=== PATIENT | female | born 1945 | race Caucasian/White ===

== ENCOUNTER 2016-12-16 16:09 | Emergency (ER) | payer MEDICARE, BC ==
[2016-12-16] MEDS ORDERED: Ondansetron INJ* 2 MG/ML VIAL IV ONE ×2 (17:17→20:02)
[2016-12-16] MEDS ORDERED: NS 0.9% 1000 ML* 1,000 ML IV ONE (17:17)
[2016-12-16] MEDS ORDERED: Albuterol 2.5 MG/3 ML NEB.SOL* (0.083%) INH ONE (18:12)
[2016-12-16] MEDS ORDERED: Ipratropium 0.5MG/2.5ML NEB* 0.5 MG/2.5 ML NEB.SOLN INH ONE (18:12)
[2016-12-16] MEDS ORDERED: guaiFENesin/CODIEN 100MG-10MG* 5 ML UDC PO ONE (18:17)
[2016-12-16 18:45] LABS: Hematocrit 36 % (35-47); Hemoglobin 12.4 g/dl (12.0-16.0); Mean Corpuscular HGB Conc 35 g/dl (31-36); Mean Corpuscular Hemoglobin 36 pg (27-31); Mean Corpuscular Volume 104 fL (80-97); Mean Platelet Volume 8 um3 (7.4-10.4); Red Blood Count 3.44 10^6/ul (4.0-5.4); Red Cell Distribution Width 14 % (10.5-15); White Blood Count 5.6 10^3/ul (3.5-10.8)
--- NOTE | 2016-12-16 18:54 | RAD ---
Indication: Cough. 2 views of the chest are reviewed and compared to previous exam dated October 21, 2013. Patient has had prior right lung lobectomy. Postoperative changes with pleural thickening is noted in the right costophrenic angle. Left lung field appears hyperinflated. No definite pneumonia is noted. IMPRESSION: Postop changes of the right lung field with chronic pleural changes. No definite pneumonia is identified.
[2016-12-16 19:13] LABS: ALT 11 U/L (7-52); AST 16 U/L (13-39); Albumin 4.2 g/dL (3.2-5.2); Alkaline Phosphatase 96 U/L (34-104); Anion Gap 10 mmol/L (2-11); BUN/Creatinine Ratio 20.2 (8-20); Blood Urea Nitrogen 22 mg/dL (6-24); C Reactive Protein 25.43 mg/L (< 5.00); CO2 Carbon Dioxide 29 mmol/L (22-32); Chloride 98 mmol/L (101-111); EGFR Non-African American 49.8 (>60); Globulin 3.6 g/dL (2-4); Glucose 134 mg/dL (70-100); Lipase < 10 U/L (11.0-82.0); Potassium 3.7 mmol/L (3.5-5.0); Sodium 137 mmol/L (133-145); Total Protein 7.8 g/dL (6.4-8.9)
[2016-12-16 19:17] LABS: Urine Bacteria Absent (Absent); Urine Bilirubin Negative (Negative); Urine Glucose Negative (Negative); Urine Nitrite Negative (Negative)
--- NOTE | 2016-12-16 19:23 | ED ---
Medical Screening - HPI Summary HPI Summary: The patient is a 71 year old female presenting to ED for nausea, vomiting, and inability to tolerate PO intake today. Reports preceding cough x5 days with post -tussive emesis. Denies fever, nasal symptoms, chest pain, shortness of breath, hemoptysis, abdominal pain, diarrhea, constipation, change in voiding, dysuria, hematuria, rash. Indicates current cough feels similar to prior diagnosis of right pleural effusion which was secondary to breast CA. Currently undergoing daily PO chemotherapy for recurrent Breast CA under oncologist Dr. Madden. Additional history of HTN, hypothyroid, PNA. S/P right mastectomy and c- section. Denies significant FH. PCP Dr. Siu. SH: Occasional ETOH. Denies smoking. - History of Current Complaint Chief Complaint: EDNauseaVomitDiarrh Stated Complaint: VOMITING-CA PT Time Seen by Provider: 12/16/16 17:56 PMH/Surg Hx/FS Hx/Imm Hx Endocrine/Hematology History: Reports: Hx Thyroid Disease Cardiovascular History: Reports: Hx Hypertension Respiratory History: Reports: Hx Pleural Effusion, Hx Pneumonia - several times after chemo, Other Respiratory Problems/Disorders - BREAST CA. PLEURAL EFFUSION Sensory History: Reports: Hx Contacts or Glasses - reading Opthamlomology History: Reports: Hx Contacts or Glasses - reading Psychiatric History: Comment Only: Other Psychiatric Issues/Disorders - clostrophobic - Cancer History Cancer Type, Location and Year: Right Breast, 1998, Dr. Nico Barger Chemotherapy: Yes Hx Radiation Therapy: Yes Hx Palliative Cancer Treatment: No - Surgical History Surgery Procedure, Year, and Place: rt mastectomy 1998; Hx Anesthesia Reactions: No Infectious Disease History: No Infectious Disease History: Denies: History Other Infectious Disease, Traveled Outside the [place] in Last 30 Days - Family History Known Family History: Positive: None - Social History Alcohol Use: Occasionally Substance Use Type: Reports: None Smoking Status (MU): Never Smoked Tobacco Review of Systems Constitutional: Negative ENT: Negative Cardiovascular: Negative Positive: Cough. Negative: Shortness Of Breath Positive: Vomiting, Nausea. Negative: Abdominal Pain, Diarrhea Genitourinary: Negative Negative: dysuria, frequency, hematuria Skin: Negative Negative: Rash Neurological: Negative All Other Systems Reviewed And Are Negative: Yes Physical Exam Triage Information Reviewed: Yes Vital Signs On Initial Exam: Initial Vitals Temp Pulse Resp BP Pulse Ox 98.2 F 100 16 141/77 100 12/16/16 16:11 12/16/16 16:11 12/16/16 16:11 12/16/16 16:11 12/16/16 16:11 Vital Signs Reviewed: Yes Appearance: Positive: Well-Appearing, Pain Distress - mild pain, no guarding or grimace, Obese Skin: Positive: Warm, Skin Color Reflects Adequate Perfusion, Dry Head/Face: Positive: Normal Head/Face Inspection Eyes: Positive: Other: - Anicteric ENT: Positive: Hearing grossly normal, Other - Oral mucosa moist Neck: Positive: Supple Respiratory/Lung Sounds: Positive: Breath Sounds Present, Wheezes - scant expiratory wheezing left > right. Negative: Decreased Breath Sounds, Rales, Rhonchi, Subcutaneous Emphysema, Stridor, Unable to speak in full sentences Cardiovascular: Positive: Normal - radial pulse 2+, RRR, S1, S2. Negative: Murmur, Rub, Tachycardia, Leg Edema Left, Leg Edema Right Abdomen Description: Positive: Nontender, No Organomegaly, Soft. Negative: Distended, Guarding, Peritoneal Signs Bowel Sounds: Positive: Present Musculoskeletal: Positive: Normal - AROM all extremities Neurological: Positive: Normal - awake, alert, Facial Symmetry, Speech Normal Psychiatric: Positive: Normal AVPU Assessment: Alert - Magda Coma Scale Coma Scale Total: 15 Diagnostics - Vital Signs Vital Signs Temp Pulse Resp BP Pulse Ox 12/16/16 19:00 95 143/73 98 12/16/16 18:44 98 96 12/16/16 18:42 137/75 12/16/16 17:25 97.7 F 100 20 114/70 100 12/16/16 16:11 98.2 F 100 16 141/77 100 - Laboratory Lab Results: Lab Results 12/16/16 12/16/16 Range/Units 18:30 18:30 WBC 5.6 (3.5-10.8) 10^3/ul RBC 3.44 L (4.0-5.4) 10^6/ul Hgb 12.4 (12.0-16.0) g/dl Hct 36 (35-47) % MCV 104 H (80-97) fL MCH 36 H (27-31) pg MCHC 35 (31-36) g/dl RDW 14 (10.5-15) % Plt Count 392 (150-450) 10^3/ul MPV 8 (7.4-10.4) um3 Neut % (Auto) 83.1 H (38-83) % Lymph % (Auto) 11.2 L (25-47) % [place] % (Auto) 4.6 (1-9) % Eos % (Auto) 0.1 (0-6) % Baso % (Auto) 1.0 (0-2) % Absolute Neuts (auto) 4.6 (1.5-7.7) 10^3/ul Absolute Lymphs (auto) 0.6 L (1.0-4.8) 10^3/ul Absolute Monos (auto) 0.3 (0-0.8) 10^3/ul Absolute Eos (auto) 0 (0-0.6) 10^3/ul Absolute Basos (auto) 0.1 (0-0.2) 10^3/ul Absolute Nucleated RBC 0.01 10^3/ul Nucleated RBC % 0.1 Sodium 137 (133-145) mmol/L Potassium 3.7 (3.5-5.0) mmol/L Chloride 98 L (101-111) mmol/L Carbon Dioxide 29 (22-32) mmol/L Anion Gap 10 (2-11) mmol/L BUN 22 (6-24) mg/dL Creatinine 1.09 H (0.51-0.95) mg/dL Est GFR ( Amer) 64.0 (>60) Est GFR (Non-Af Amer) 49.8 (>60) BUN/Creatinine Ratio 20.2 H (8-20) Glucose 134 H (70-100) mg/dL Calcium 10.0 (8.6-10.3) mg/dL Total Bilirubin 0.50 (0.2-1.0) mg/dL AST 16 (13-39) U/L ALT 11 (7-52) U/L Alkaline Phosphatase 96 (34-104) U/L C-Reactive Protein 25.43 H (< 5.00) mg/L Total Protein 7.8 (6.4-8.9) g/dL Albumin 4.2 (3.2-5.2) g/dL Globulin 3.6 (2-4) g/dL Albumin/Globulin Ratio 1.2 (1-3) Lipase < 10 L (11.0-82.0) U/L Result Diagrams: 12/16/16 18:30 12/16/16 18:30 Lab Statement: Any lab studies that have been ordered have been reviewed, and results considered in the medical decision making process. Re-Evaluation - Re-Evaluation First Eval Re-Evaluation Time: 20:03 Change: Improved Comment: Patient reports mild persistent nausea without recurrent vomiting. Discussed lab and imaging results. Given water, gingerale, crackers, and apple sauce for PO challenge. Second Eval Re-Evaluation Time: 20:57 Change: Improved Comment: Patient reports feeling improved after duoneb. Tolerated PO liquids and crackers. Is taking PO chemo med. Anticipate discharge. Course/Dx - Diagnoses Provider Diagnoses: Emesis, Dehydration, Bronchospasm Discharge - Discharge Plan Condition: Stable Disposition: HOME Prescriptions: Albuterol HFA INHALER* [Ventolin HFA Inhaler*] 1 puff INH Q6H PRN #1 mdi PRN Reason: Sob/Wheezing guaiFENesin/CODIEN 100MG-10MG* [Robitussin AC 100Mg-10Mg*] 10 ml PO Q4H PRN # 300 ml MDD 60 mL PRN Reason: Cough Patient Education Materials: Bronchospasm (ED), Acute Nausea and Vomiting (ED) , Dehydration (ED) Referrals: Jeane Siu MD [Primary Care Provider] - Joshua Madden MD [Medical Doctor] -
--- NOTE | 2016-12-16 20:10 | ED ---
Stephanie Sandy Anna, scribed for Amanda Hinton MD on 12/16/16 at 1927 . Progress - Progress Note Progress Note: Patient is a 71 y/o female coming to [facility] presenting with sudden onset of intermittent emesis that began five days ago. She is not able to keep down fluids. The emesis is triggered by coughing. She reports frequent coughing. She currently sees Dr. Madden for treatment for breast CA treated with chemotherapy. The chemotherapy makes her intermittently nauseous, but her current emesis is not at baseline. The symptoms are not alleviated by Zofran. Denies fever. She has not been admitted for this previously. Three years ago, she had 2 L of fluid in her pleural cavity and was coughing similarly. She did not experience emesis at that time. Patient has dry mucous membranes. She is currently uncomfortable. Her abd is soft and nontender. She is coughing infrequently. Course/Dx - Diagnoses Provider Diagnoses: Emesis The documentation as recorded by the Stephanie arellano Anna accurately reflects the service I personally performed and the decisions made by , Amanda Hinton MD.
[2016-12-16] MEDS ORDERED: Albuterol/Ipratropium NEB.SOL* Albuterol 2.5 MG/Ipratropium 0.5 MG 3 ML INH ONE (20:28)
[2016-12-16 21:34] VITALS: BP 136/70
== END 2016-12-16 21:34 | disposition home or self-care (01) ==
LOC: ED 16:09
DX: R11.10 Vomiting, unspecified (principal); C50.919 Malignant neoplasm of unspecified site of unspecified female breast; I10 Essential (primary) hypertension; E03.9 Hypothyroidism, unspecified; E86.0 Dehydration; J98.01 Acute bronchospasm
CPT/HCPCS: 36415; 71020; 80053; 81003; 81015; 83690; 85025; 86140; 94640; 96360; 96374; 96376; 99283; A9270-GY; J2405

== ENCOUNTER 2017-02-16 10:02 | Inpatient (IN) | payer MEDICARE, BC ==
--- NOTE | 2017-02-16 11:16 | ED ---
Shortness of Breath - HPI Summary HPI Summary: 72 y/o patient with h/o SOB, breast CA currently undergoing chemo, recent port placement 02/13 with increasing SOB x 1 week, patient unable to walk across room without feeling weak/ SOB, no chest pain, unable to take deep breath, only shallow breathing, + coughing productive with white phlegm. no fever, chills. + wekaness fatigue from chemo. no tob use. spoke with Dr. Madden this AM. - History of Current Complaint Chief Complaint: EDShortnessOfBreath Time Seen by Provider: 02/16/17 10:28 Hx Obtained From: Patient Onset/Duration: Gradual Onset, Lasting Weeks, Still Present, Worse Since - past week Dyspnea At: Exertion Aggrevating Factors: Movement, Deep Breaths Alleviating Factors: Bronchodilators, Oxygen, Upright Position Associated Signs & Symptoms: Cough (Productive) - Risk Factors Cardiac: Negative - Allergy/Home Medications Allergies/Adverse Reactions: Allergies Allergy/AdvReac Type Severity Reaction Status Date / Time Propoxyphene [From Darvon] Allergy Intermediate Hives Verified 02/16/17 10:05 Shellfish Allergy Allergy Intermediate Hives Verified 02/16/17 10:05 Levofloxacin Allergy Unknown Verified 02/16/17 10:05 Reaction Details Home Medications: Home Medications Mometasone 220 MCG MDI * [Asmanex 220 MCG MDI *] 1 puff INH BID 02/16/17 [ History Confirmed 02/16/17] Ondansetron TAB* [Zofran 4 MG Tab*] 4 mg PO Q6H PRN 02/16/17 [History Confirmed 02/16/17] PMH/Surg Hx/FS Hx/Imm Hx Previously Healthy: No - chem tx for breast CA, prior radiation Endocrine/Hematology History: Reports: Hx Thyroid Disease Denies: Hx Diabetes Cardiovascular History: Reports: Hx Hypertension Respiratory History: Reports: Hx Pleural Effusion, Hx Pneumonia - several times after chemo, Other Respiratory Problems/Disorders - BREAST CA. PLEURAL EFFUSION History: Denies: Hx Renal Disease Sensory History: Reports: Hx Contacts or Glasses - reading Opthamlomology History: Reports: Hx Contacts or Glasses - reading Psychiatric History: Comment Only: Other Psychiatric Issues/Disorders - clostrophobic - Cancer History Cancer Type, Location and Year: Right Breast, 1998, Dr. Nico Barger Chemotherapy: Yes Hx Radiation Therapy: Yes Hx Palliative Cancer Treatment: No - Surgical History Surgery Procedure, Year, and Place: rt mastectomy 1998; Hx Anesthesia Reactions: No Infectious Disease History: Denies: History Other Infectious Disease, Traveled Outside the [place] in Last 30 Days - Family History Known Family History: Positive: None - Social History Alcohol Use: None Substance Use Type: Reports: None Smoking Status (MU): Former Smoker Have You Smoked in the Last Year: No Review of Systems Constitutional: Negative Eyes: Negative ENT: Negative Cardiovascular: Negative Positive: Shortness Of Breath, Cough Gastrointestinal: Negative Genitourinary: Negative Musculoskeletal: Negative Skin: Negative Positive: Weakness Psychological: Normal All Other Systems Reviewed And Are Negative: Yes Physical Exam Triage Information Reviewed: Yes Vital Signs On Initial Exam: Initial Vitals Temp Pulse Resp BP Pulse Ox 97.4 F 117 16 117/69 95 02/16/17 10:06 02/16/17 10:06 02/16/17 10:06 02/16/17 10:06 02/16/17 10:06 Vital Signs Reviewed: Yes Appearance: Positive: No Pain Distress, Well-Nourished, Ill-Appearing, Thin Skin: Positive: Warm, Skin Color Reflects Adequate Perfusion Head/Face: Positive: Normal Head/Face Inspection Eyes: Positive: Normal, EOMI, MAGGIE ENT: Positive: Normal ENT inspection Neck: Positive: Supple, Nontender, No Lymphadenopathy Respiratory/Lung Sounds: Positive: Clear to Auscultation, Other - decreased breath sounds b/l LLs, some wheezing/ crackles KOFI Cardiovascular: Positive: Normal, Pulses are Symmetrical in both Upper and Lower Extremities, Tachycardia - mild Musculoskeletal: Positive: Normal, Strength/ROM Intact - grossly intact Neurological: Positive: Normal, Sensory/Motor Intact, Alert, Oriented to Person Place, Time, Facial Symmetry, Speech Normal Psychiatric: Positive: Normal AVPU Assessment: Alert - [place] Coma Scale Coma Scale Total: 15 Diagnostics - Vital Signs Vital Signs Temp Pulse Resp BP Pulse Ox 02/16/17 10:26 97.4 F 114 18 117/69 94 02/16/17 10:06 97.4 F 117 16 117/69 95 - Laboratory Lab Statement: Any lab studies that have been ordered have been reviewed, and results considered in the medical decision making process. Course/Dx - Course Course Of Treatment: CXR + for increasing b/l pleural effusions, discussed with DR. Madden, admit overnight, chest tube likely in AM, admitted to hospitalist - Diagnoses Provider Diagnoses: Pleural effusion, bilateral Discharge - Discharge Plan Condition: Guarded Disposition: ADMITTED TO [facility]
--- NOTE | 2017-02-16 12:08 | RAD ---
Indication: Shortness of breath, port placement. 2 views of the chest including dual energy PA views demonstrate no mediastinal shift. Heart is of normal size and configuration. Bilateral pleural effusions are noted which is increasing since January 21, 2017. No pneumothorax is noted. Chronic interstitial disease is noted. IMPRESSION: Increasing pleural effusion. Portacatheter in place.
[2017-02-16] MEDS ORDERED: Albuterol/Ipratropium NEB.SOL* Albuterol 2.5 MG/Ipratropium 0.5 MG 3 ML INH ONE (12:09)
[2017-02-16] MEDS ORDERED: Acetaminophen TAB* 325 MG PO PRN (14:01)
[2017-02-16] MEDS ORDERED: Ondansetron INJ* 2 MG/ML VIAL IV PRN (14:01)
[2017-02-16] MEDS: Albuterol 2.5 MG/3 ML NEB.SOL* (0.083%) INH PRN (15:20)
[2017-02-16] MEDS: NS 0.9% 1000 ML* 1,000 ML IV SCH (15:52)
[2017-02-16 16:02] LABS: Hematocrit 33 % (35-47); Hemoglobin 11.4 g/dl (12.0-16.0); Mean Corpuscular HGB Conc 34 g/dl (31-36); Mean Corpuscular Hemoglobin 35 pg (27-31); Mean Corpuscular Volume 101 fL (80-97); Mean Platelet Volume 9 um3 (7.4-10.4); Red Blood Count 3.29 10^6/ul (4.0-5.4); Red Cell Distribution Width 15 % (10.5-15); White Blood Count 7.7 10^3/ul (3.5-10.8)
[2017-02-16 16:07] LABS: Add Diff/Slide Review? Slide Review Added; Comments Flag Yes
[2017-02-16 16:16] LABS: Albumin 3.6 g/dL (3.2-5.2); Calcium 9.3 mg/dL (8.6-10.3); EGFR African American 74.8 (>60); EGFR Non-African American 58.2 (>60); Globulin 3.1 g/dL (2-4); Potassium 2.9 mmol/L (3.5-5.0); Total Bilirubin 0.7 mg/dL (0.2-1.0); Total Protein 6.7 g/dL (6.4-8.9)
[2017-02-16] MEDS ORDERED: Potassium Chloride LIQUID* 20 MEQ PACKET PO ONE (16:30)
[2017-02-16] MEDS ORDERED: Metoprolol Succinate XL TAB* 25 MG PO ONE (17:00)
[2017-02-16] MEDS: Mometasone 220 MCG MDI INH SCH (19:30)
[2017-02-16] MEDS ORDERED: Loperamide CAP* 2 MG PO ONE (19:56)
[2017-02-16] MEDS: Benzonatate CAP* 100 MG PO PRN (20:06)
[2017-02-16] MEDS: Heparin VIAL(*) 5000 UNITS/ML VIAL (FIVE THOUSAND) SUBCUT SCH (21:33)
--- NOTE | 2017-02-16 22:04 | HP ---
AMENDED REPORT NOW INCLUDES COSIGNER HISTORY AND PHYSICAL: DATE OF ADMISSION: 02/16/17 PRIMARY CARE PROVIDER: Dr. Siu. CONSULTING MOP MAKER: Dr. Madden. ATTENDING PHYSICIAN: Adams Gusman MD * (dictated by Susi Zaldivar PP CHIEF COMPLAINT: 1. Shortness of breath. 2. Cough. HISTORY OF PRESENT ILLNESS: Ms. Saunders is a 72-year-old female patient who has a history of hypothyroidism, hypertension, breast cancer with recurrence, and pleural effusion. She has a history of COPD as well. The patient comes in today and says since November she has been having progressive worsening shortness of breath, but over the last 3 days, she noticed that it was much worse. On the , she was here. A PowerPort was placed and she was started on IV chemotherapy again for recurrence of breast cancer in the form of Taxol. She underwent the therapy, did well; however, over the last 48 to 72 hours, she has had progressive worsening shortness of breath. She has been coughing. She has noticed that with minimal exertion, just standing up, she becomes short of breath. She was in close contact with Dr. Maddne. She touched base with him today and he was concerned and felt that the patient should be evaluated in the ER and possibly set up for thoracentesis. The patient states that she has not been having any fevers or chills. She denied having any chest discomfort. She denied having any abdominal discomfort and denied having any chest pain, and again, her biggest complaint was shortness of breath and there was no orthopnea. She came to the ER. She was evaluated. Chest x-ray did show increasing size of pleural effusion and the hospitalist service was asked to evaluate for admission. PAST MEDICAL HISTORY: Significant for: 1. Hypothyroidism. 2. Hypertension. 3. Breast cancer. 4. COPD. 5. Pleural effusion. PAST SURGICAL HISTORY: 1. She has had a mastectomy. 2. . HOME MEDICATIONS: Include: 1. Zofran 4 mg every 6 hours as needed. 2. Asmanex 1 puff inhaled b.i.d. 3. Albuterol 1 neb inhaled q.i.d. 4. Dyazide 1 capsule p.o. daily. 5. Metoprolol 25 mg daily. 6. Synthroid 100 mcg daily. 7. Albuterol 2 puffs every 4 hours as needed. ALLERGIES TO MEDICATIONS: Include SHELLFISH, LEVAQUIN, and DARVOCET. FAMILY HISTORY: Mother had a history of lung cancer. Father had a history of CHF. SOCIAL HISTORY: She is a former smoker. She quit over 40 years ago. She does not drink alcohol. Surrogate decision maker is her and daughter. REVIEW OF SYSTEMS: There is no documented fever. She denied any weight change. No double vision. No ear discharge. No rhinorrhea. No sore throat. There is a cough that is productive of white sputum. She denies having any again chest discomfort. No abdominal pain. No nausea. No vomiting. No dysuria. No frequency. She denied having any loss of consciousness. Review of 14 systems completed, all others negative. PHYSICAL EXAMINATION GENERAL: At this time, Ms. Saunders is a 72-year-old female patient. She is sitting in the ER stretcher. She does not appear to be in any acute respiratory distress. She is awake and she is alert. VITAL SIGNS: Blood pressure 134/77, pulse of 114, respirations 20, O2 sat 98%, and her temperature was 97.4. HEENT: Head atraumatic. Eyes: EOMs intact. Sclerae are anicteric and not pale. Throat: Oral mucosa appears to be moist. No oropharyngeal erythema. NECK: Supple. LUNGS: She was diminished in the bases. Equal diaphragmatic expansion. HEART: Sounds S1, S2. Regular rate and rhythm. She is tachycardic. ABDOMEN: Soft, flat, nontender. Bowel sounds were present. EXTREMITIES: Pulses were 2+ throughout. She is able to move all 4 extremities with 5/5 strength. NEUROLOGIC: The patient is awake, she is alert, and she is oriented x3. Tongue midline. Bass Singer are equal. No gross focal deficits. SKIN: Intact. LABORATORY DATA AND DIAGNOSTIC STUDIES: Today are pending, but she did have labs on the , revealed WBC of 8.0, RBC of 3.36, hemoglobin 11.8, hematocrit 34, platelet count of 358. The sodium was 138, potassium 3.2, chloride of 102, bicarb 26, BUN 15, creatinine of 0.87, glucose 122. There was a chest x-ray obtained today, which impression read increasing pleural effusion, Port-A-Cath in place. Bilateral pleural effusions were noted which are increasing in size since January 21 exam. She had a CTA of the chest on December 23 which showed no evidence of PE. Bronchiectasis in the anterior right upper lobe. Bilateral pleural effusions are present. Left effusion appears to be new since previous exam. Right lung base laterally is new consolidated soft tissue for which an underlying mass is nonexclusive, measuring up to 2.1 cm. Old medical records were reviewed. ASSESSMENT AND PLAN: Ms. Saunders is a 72-year-old female patient coming in to the ER today with progressive worsening shortness of breath over the last 48 to 72 hours. On evaluation today, it was noted that pleural effusions were increasing in size and we were asked to evaluate for admission. She will be admitted under observation status for: 1. Pleural effusion: At this point, I did set up for a thoracentesis. I will send the pleural fluid off for studies. We will check for protein, LDH, pH; in addition to this, cultures and cell count. We should send that off for cytology. Dr. Madden will be evaluating the patient tomorrow and they could send that off for any staining that they would want done. For the time being, we will follow. 2. Tachycardia: The etiology is unclear. It could be dehydration. She recently had chemo. She has been taking her Dyazide as prescribed. So, I am going to give her fluids. I am waiting for labs today. We will get a CBC and a CMP to start, and I am trying to get an EKG as well. 3. Hypothyroidism: Continue her Synthroid. 4. Hypertension: Continue her metoprolol XL only and I am going to hold the Dyazide. 5. Breast cancer: Again, Dr. Madden will be evaluating. 6. Question of chronic obstructive pulmonary disease: She is on Asmanex and standing nebs. We will continue. 7. DVT prophylaxis: She is high risk. I will place her on heparin subcu. 8. Code status: She wishes to be a full code. 9. Fluids, electrolytes, and nutrition: She can have a regular diet and n.p.o. after midnight. TIME SPENT: Time spent on the admission was approximately 60 minutes; greater than half the time was spent [id number] with the patient obtaining my history and physical, other half the time spent going over the plan of care with the patient and implementing plan of care. I did discuss the plan of care with my attending, Dr. Gusman; he is in agreement. JANES ROSE NP CC: Dr. Siu; Dr. Madden* [id number]/CPS #: [id number] [facility]
[2017-02-17] MEDS: Benzonatate CAP* 100 MG PO PRN ×3 (00:35→20:59)
[2017-02-17] MEDS: Heparin VIAL(*) 5000 UNITS/ML VIAL (FIVE THOUSAND) SUBCUT SCH ×3 (06:01→20:59)
[2017-02-17] MEDS: Levothyroxine TAB* 100 MCG TAB PO SCH (06:02)
[2017-02-17 06:27] LABS: Hematocrit 31 % (35-47); Hemoglobin 10.7 g/dl (12.0-16.0); Mean Corpuscular HGB Conc 34 g/dl (31-36); Mean Corpuscular Hemoglobin 35 pg (27-31); Mean Corpuscular Volume 101 fL (80-97); Mean Platelet Volume 9 um3 (7.4-10.4); Red Cell Distribution Width 15 % (10.5-15); White Blood Count 6.7 10^3/ul (3.5-10.8)
[2017-02-17 06:34] LABS: Calcium 8.8 mg/dL (8.6-10.3); EGFR African American 108.2 (>60); EGFR Non-African American 84.1 (>60); Potassium 3.3 mmol/L (3.5-5.0)
[2017-02-17] MEDS: NS 0.9% 1000 ML* 1,000 ML IV SCH (07:45)
[2017-02-17] MEDS: Albuterol 2.5 MG/3 ML NEB.SOL* (0.083%) INH SCH ×4 (07:53→21:03)
[2017-02-17] MEDS: Mometasone 220 MCG MDI INH SCH ×2 (09:28→21:03)
[2017-02-17] MEDS ORDERED: Albuterol 2.5 MG/3 ML NEB.SOL* (0.083%) INH SCH ×2 (11:00→15:00)
[2017-02-17] MEDS: Albuterol 2.5 MG/3 ML NEB.SOL* (0.083%) INH PRN (11:51)
--- NOTE | 2017-02-17 14:32 | RAD ---
Indication: Left pleural effusion. Real-time sonography of the left chest was performed. Using usual aseptic technique and lidocaine as local anesthetic the left pleural space was entered with a 5-[place] catheter. Approximately 900 mL of juanito fluid was aspirated. IMPRESSION: Successful aspiration of 900 mL of juanito fluid from the left hemithorax.
--- NOTE | 2017-02-17 14:45 | RAD ---
INDICATION: Left thoracentesis COMPARISON: February 16, 2017 TECHNIQUE: PA dual-energy views were obtained. FINDINGS: Bones/Soft Tissues: There are no acute bony findings. There is a left-sided PowerPort catheter, unchanged. There is right mastectomy Cardiomediastinal: The heart is normal in size. Lungs: There is persistent mild volume loss in right hemothorax. There is no left-sided pneumothorax post thoracentesis. Pleura: There are small bilateral pleural effusions. Left pleural effusion is smaller post thoracentesis. Other: None IMPRESSION: Left-sided effusion is smaller. There is no evidence of pneumothorax. The examination is otherwise unchanged
[2017-02-17] MEDS: Metoprolol Succinate XL TAB* 25 MG PO SCH (14:53)
[2017-02-17 15:20] LABS: Body Fluid Appearance Clear
[2017-02-17 15:27] LABS: Body Fluid WBC 747 /mcL
[2017-02-17 15:45] LABS: Body Fluid Total Cells Counted 100
[2017-02-17] MEDS: Potassium Chlor TAB* 20 MEQ TAB.ER PO SCH (20:59)
[2017-02-18] MEDS: Levothyroxine TAB* 100 MCG TAB PO SCH (05:59)
[2017-02-18] MEDS: Heparin VIAL(*) 5000 UNITS/ML VIAL (FIVE THOUSAND) SUBCUT SCH (05:59)
[2017-02-18 06:21] LABS: Hematocrit 30 % (35-47); Hemoglobin 10.3 g/dl (12.0-16.0); Mean Corpuscular HGB Conc 35 g/dl (31-36); Mean Corpuscular Hemoglobin 35 pg (27-31); Mean Corpuscular Volume 101 fL (80-97); Mean Platelet Volume 9 um3 (7.4-10.4); Red Blood Count 2.95 10^6/ul (4.0-5.4); Red Cell Distribution Width 15 % (10.5-15); White Blood Count 7.5 10^3/ul (3.5-10.8)
[2017-02-18 06:32] LABS: BUN/Creatinine Ratio 23.9 (8-20); Calcium 8.6 mg/dL (8.6-10.3); EGFR African American 111.9 (>60); Magnesium 1.8 mg/dL (1.9-2.7); Potassium 3.7 mmol/L (3.5-5.0)
[2017-02-18 08:01] VITALS: BP 108/52
[2017-02-18] MEDS: Mometasone 220 MCG MDI INH SCH (08:10)
[2017-02-18] MEDS: Albuterol 2.5 MG/3 ML NEB.SOL* (0.083%) INH SCH ×2 (08:10→12:54)
[2017-02-18] MEDS: Metoprolol Succinate XL TAB* 25 MG PO SCH (09:20)
[2017-02-18] MEDS: Potassium Chlor TAB* 20 MEQ TAB.ER PO SCH (09:20)
[2017-02-18 14:41] LABS: Osmolality Body Fluid 286 mOsm/kg
[2017-02-18 16:04] LABS: Total Protein, BF 4.3 g/dL
--- NOTE | 2017-02-18 23:22 | DS ---
DISCHARGE SUMMARY: DATE OF ADMISSION: 02/16/17 DATE OF DISCHARGE: 02/18/17 ATENDING PHYSICIAN: Aditya Best MD (dictated by Trinity Murcia NP) DISCHARGE DIAGNOSES: 1. Shortness of breath: Secondary to pleural effusion, improved, status post thoracentesis. 2. Metastatic breast cancer: Pathology of effusion pending, however, currently on therapy. 3. Hypothyroidism: Stable on medication. 4. Hypertension: Stable on medications. DISCHARGE MEDICATIONS: 1. Albuterol 2.5 mg nebulizers inhaled 4 times a day p.r.n. shortness of breath. 2. Acetaminophen 650 mg p.o. q.4 hours p.r.n. pain or fever. 3. Benzonatate 100 mg p.o. t.i.d. p.r.n. cough. 4. EMLA cream apply to port 30 to 60 minutes prior to access p.r.n. 5. Potassium chloride 20 mEq p.o. b.i.d. 6. Stop diuretic. HOSPITAL COURSE: Please see admission note for full H and P; however, briefly, Ms. Saunders is well known to our service due to her unfortunate diagnosis of metastatic breast cancer diagnosed initially in 2012 with malignant pleural effusion. She had subsequently been treated with hormone based therapy most recently on Ibrance. Unfortunately, over the last several months, she has complained of increasing shortness of breath and cough initially treated as an infection, but with CT scan showing pleural recurrence and now on weekly Taxol, status post cycle one on 02/13/17. Ms. Saunders presented to the ER on 02/16/17 with increasing shortness of breath and difficulty breathing. She was admitted for thoracentesis and monitoring. During admission, she had mild tachycardia, unclear origin, however, component felt to be related to compensation and dehydration. This is partially improved as she remained somewhat tachycardic with exertion. Thoracentesis was performed on 02/17/17, procedure was tolerated very well. A total of 900 mL of juanito colored fluid was removed from the left pleural space. Currently cultures and pathology are pending. Ms. Saunders notes marked improvement since thoracentesis and very much would like to go home. Her oxygen saturations are stable on room air and while she was short of breath with exertion and mild associated tachycardia, she feels very good overall. She would be discharged home today and follow up in our office on for planned cycle 1, day 8 Taxol, as well as follow up with myself Eleno Murcia NP, for followup from hospitalization. Plan of care was reviewed at length with Ms. Saunders, who denies further questions. TIME SPENT: Greater than 40 minutes were spent with greater than 50% in face-to - face counseling. TRINITY MURCIA NP CC: Dr. Siu* [id number]/CPS #: [id number] MTDD
[2017-02-19 22:03] LABS: BF PH 7.6
== END 2017-02-18 13:10 | disposition home or self-care (01) | DRG 188 ==
LOC: ED 10:02 → MED 13:30 → OBSVTOIN 02-17 23:00
PROVIDERS: ADMIT Hospitalist; ATTEND Internal Medicine Hematology & Oncology
PROC: 0W9B3ZX Drainage of Left Pleural Cavity, Percutaneous Approach, Diagnostic (ICD-10-PCS; principal; 2017-02-17)
DX: J90 Pleural effusion, not elsewhere classified (principal); J44.9 Chronic obstructive pulmonary disease, unspecified; C50.919 Malignant neoplasm of unspecified site of unspecified female breast; E86.0 Dehydration; R00.0 Tachycardia, unspecified; E03.9 Hypothyroidism, unspecified; I10 Essential (primary) hypertension; Z79.899 Other long term (current) drug therapy; Z88.1 Allergy status to other antibiotic agents; Z91.013 Allergy to seafood; Z91.09 Other allergy status, other than to drugs and biological substances; Z80.1 Family history of malignant neoplasm of trachea, bronchus and lung; Z82.5 Family history of asthma and other chronic lower respiratory diseases; Z87.891 Personal history of nicotine dependence
CPT/HCPCS: 32555; 36415; 71010; 71020; 80048; 80053; 83615; 83735; 83930; 83986; 84157; 85025; 85610; 87040; 87070; 87205; 88112; 88305; 88341; 88342; 89051; 93005; 94640; 94760; 99232; 99239; A9270-GY; G0378; J1644

== ENCOUNTER 2017-10-17 08:25 | Emergency (ER) | payer MEDICARE, BC ==
[2017-10-17 09:24] LABS: Hematocrit 36 % (35-47); Hemoglobin 12.2 g/dl (12.0-16.0); Mean Corpuscular HGB Conc 34 g/dl (31-36); Mean Corpuscular Hemoglobin 30 pg (27-31); Mean Corpuscular Volume 89 fL (80-97); Red Blood Count 4.03 10^6/ul (4.0-5.4); Red Cell Distribution Width 17 % (10.5-15); White Blood Count 6.3 10^3/ul (3.5-10.8)
[2017-10-17 09:28] LABS: Add Diff/Slide Review? Slide Review Added; Comments Flag Yes
[2017-10-17 09:41] LABS: Albumin 4.1 g/dL (3.2-5.2); BUN/Creatinine Ratio 17.5 (8-20); C Reactive Protein 9.99 mg/L (< 5.00); Calcium 9.4 mg/dL (8.6-10.3); EGFR African American 91.2 (>60); EGFR Non-African American 70.9 (>60); Globulin 2.8 g/dL (2-4); Potassium 4.4 mmol/L (3.5-5.0); Total Bilirubin 0.5 mg/dL (0.2-1.0); Total Protein 6.9 g/dL (6.4-8.9)
--- NOTE | 2017-10-17 10:00 | RAD ---
INDICATION: Cough. COMPARISON: Comparison is made with a prior chest x-ray study from February 25, 2017. TECHNIQUE: Dual-energy PA and lateral views of the chest were obtained. FINDINGS: There is a power port central venous catheter entering on the left side. The catheter tip projects overlying the superior vena cava. The heart is mildly enlarged and unchanged from the prior exam. The lungs are hyperinflated. There is mild diffuse prominence of the interstitial markings and small bilateral pleural effusions most consistent with congestive heart failure. These findings appear similar to the prior exam. IMPRESSION: FINDINGS MOST CONSISTENT WITH CONGESTIVE HEART FAILURE.
[2017-10-17 10:03] LABS: Mean Platelet Volume 9 um3 (7.4-10.4)
[2017-10-17 10:57] LABS: Troponin I 0.01 ng/mL (<0.04)
[2017-10-17 11:46] VITALS: BP 147/72
--- NOTE | 2017-10-17 13:22 | ED ---
Floyd Sandy Natalie, scribed for Bacilio Bobo MD on 10/17/17 at 0857 . Shortness of Breath - HPI Summary HPI Summary: The pt is a 72 y/o F presenting to the ED c/o fullness in right chest and lung area with gradual onset over past week. The pain is aggravated by nothing and is alleviated by nothing. The pt additionally c/o SOB, nonproductive croupy coughing and increased mucous in mouth. The pt denies nothing. She received a chemotherapy 2L saline treatment on 10/13/17, and she has been getting them since February. - History of Current Complaint Chief Complaint: EDShortnessOfBreath Time Seen by Provider: 10/17/17 08:28 Hx Obtained From: Patient Onset/Duration: Gradual Onset, Lasting Days Current Severity: Moderate Aggrevating Factors: Nothing Alleviating Factors: Nothing Associated Signs & Symptoms: Cough (Nonproductive) - croupy - Allergy/Home Medications Allergies/Adverse Reactions: Allergies Allergy/AdvReac Type Severity Reaction Status Date / Time Propoxyphene [From Darvon] Allergy Intermediate Hives Verified 02/25/17 14:54 Shellfish Allergy Allergy Intermediate Hives Verified 02/25/17 14:54 Levofloxacin Allergy Unknown Verified 02/25/17 14:54 Reaction Details PMH/Surg Hx/FS Hx/Imm Hx Previously Healthy: No Endocrine/Hematology History: Reports: Hx Thyroid Disease Denies: Hx Diabetes Cardiovascular History: Reports: Hx Hypertension Respiratory History: Reports: Hx Pleural Effusion, Hx Pneumonia - several times after chemo, Other Respiratory Problems/Disorders - BREAST CA. PLEURAL EFFUSION History: Denies: Hx Renal Disease Sensory History: Reports: Hx Contacts or Glasses - reading Denies: Hx Hearing Aid Opthamlomology History: Reports: Hx Contacts or Glasses - reading Psychiatric History: Comment Only: Other Psychiatric Issues/Disorders - clostrophobic - Cancer History Cancer Type, Location and Year: Right Breast, 1998, Dr. Nico Barger Chemotherapy: Yes Hx Radiation Therapy: Yes Hx Palliative Cancer Treatment: No - Surgical History Surgery Procedure, Year, and Place: rt mastectomy 1998; Hx Anesthesia Reactions: No Infectious Disease History: No Infectious Disease History: Denies: History Other Infectious Disease, Traveled Outside the [place] in Last 30 Days - Family History Known Family History: Negative: Cardiac Disease, Hypertension, Diabetes - Social History Alcohol Use: None Substance Use Type: Reports: None Smoking Status (MU): Former Smoker Have You Smoked in the Last Year: No Review of Systems Negative: Fever Positive: Other - increased mucous in mouth Positive: Shortness Of Breath, Cough - croupy, nonproductive, Other - fullness in right chest and lung area All Other Systems Reviewed And Are Negative: Yes Physical Exam - Summary Physical Exam Summary: Appearance: The patient is well-nourished in no acute distress and in no acute pain. Skin: The skin is warm and dry and skin color reflects adequate perfusion. HEENT: The head is normocephalic and atraumatic. The pupils are equal and reactive. The conjunctivae are clear and without drainage. Nares are patent and without drainage. Mouth reveals moist mucous membranes and the throat is without erythema and exudate. The external ears are intact. The ear canals are patent and without drainage. The tympanic membranes are intact. Neck: The neck is supple with full range of motion and non-tender. There are no carotid bruits. There is no neck vein distension. Respiratory: Chest is non-tender. Lungs are clear to auscultation. The patient has decreased breath signs on the right. Cardiovascular: Heart is regular rate and rhythm. There is no murmur or rub auscultated. There is no peripheral edema and pulses are symmetrical and equal. Abdomen: The abdomen is soft and non-tender. There are normal bowel sounds heard in all four quadrants and there is no organomegaly palpated. Musculoskeletal: There is no back tenderness noted. Extremities are non-tender with full range of motion. There is good capillary refill. There is no peripheral edema or calf tenderness elicited. Neurological: Patient is alert and oriented to person, place and time. The patient has symmetrical motor strength in all four extremities. Cranial nerves are grossly intact. Deep tendon reflexes are symmetrical and equal in all four extremities. Psychiatric: The patient has an appropriate affect and does not exhibit any anxiety or depression. Triage Information Reviewed: Yes Vital Signs On Initial Exam: Initial Vitals Temp Pulse Resp BP Pulse Ox 98.0 F 89 26 172/82 96 10/17/17 08:41 10/17/17 08:41 10/17/17 08:41 10/17/17 08:41 10/17/17 08:41 Vital Signs Reviewed: Yes Diagnostics - Vital Signs Vital Signs Temp Pulse Resp BP Pulse Ox 10/17/17 08:41 98.0 F 89 26 172/82 96 - Laboratory Lab Results: Lab Results 10/17/17 10/17/17 10/17/17 Range/Units 09:04 09:04 09:04 WBC 6.3 (3.5-10.8) 10^3/ul RBC 4.03 (4.0-5.4) 10^6/ul Hgb 12.2 (12.0-16.0) g/dl Hct 36 (35-47) % MCV 89 (80-97) fL MCH 30 (27-31) pg MCHC 34 (31-36) g/dl RDW 17 H (10.5-15) % Plt Count 215 (150-450) 10^3/ul MPV 9 (7.4-10.4) um3 Neut % (Auto) 80.6 (38-83) % Lymph % (Auto) 12.4 L (25-47) % Jenkins % (Auto) 5.3 (1-9) % Eos % (Auto) 1.1 (0-6) % Baso % (Auto) 0.6 (0-2) % Absolute Neuts (auto) 5.1 (1.5-7.7) 10^3/ul Absolute Lymphs (auto) 0.8 L (1.0-4.8) 10^3/ul Absolute Monos (auto) 0.3 (0-0.8) 10^3/ul Absolute Eos (auto) 0.1 (0-0.6) 10^3/ul Absolute Basos (auto) 0 (0-0.2) 10^3/ul Absolute Nucleated RBC 0.02 10^3/ul Nucleated RBC % 0.3 D-Dimer, Quantitative < 200 (Less Than 230) ng/mL Sodium 136 (133-145) mmol/L Potassium 4.4 (3.5-5.0) mmol/L Chloride 104 (101-111) mmol/L Carbon Dioxide 24 (22-32) mmol/L Anion Gap 8 (2-11) mmol/L BUN 14 (6-24) mg/dL Creatinine 0.80 (0.51-0.95) mg/dL Est GFR ( Amer) 91.2 (>60) Est GFR (Non-Af Amer) 70.9 (>60) BUN/Creatinine Ratio 17.5 (8-20) Glucose 127 H (70-100) mg/dL Calcium 9.4 (8.6-10.3) mg/dL Total Bilirubin 0.50 (0.2-1.0) mg/dL AST 21 (13-39) U/L ALT 18 (7-52) U/L Alkaline Phosphatase 69 (34-104) U/L Troponin I 0.01 (<0.04) ng/mL C-Reactive Protein 9.99 H (< 5.00) mg/L B-Natriuretic Peptide ( - 100) pg/mL Total Protein 6.9 (6.4-8.9) g/dL Albumin 4.1 (3.2-5.2) g/dL Globulin 2.8 (2-4) g/dL Albumin/Globulin Ratio 1.5 (1-3) 10/17/17 10/17/17 Range/Units 09:04 10:43 WBC (3.5-10.8) 10^3/ul RBC (4.0-5.4) 10^6/ul Hgb (12.0-16.0) g/dl Hct (35-47) % MCV (80-97) fL MCH (27-31) pg MCHC (31-36) g/dl RDW (10.5-15) % Plt Count (150-450) 10^3/ul MPV (7.4-10.4) um3 Neut % (Auto) (38-83) % Lymph % (Auto) (25-47) % Jenkins % (Auto) (1-9) % Eos % (Auto) (0-6) % Baso % (Auto) (0-2) % Absolute Neuts (auto) (1.5-7.7) 10^3/ul Absolute Lymphs (auto) (1.0-4.8) 10^3/ul Absolute Monos (auto) (0-0.8) 10^3/ul Absolute Eos (auto) (0-0.6) 10^3/ul Absolute Basos (auto) (0-0.2) 10^3/ul Absolute Nucleated RBC 10^3/ul Nucleated RBC % D-Dimer, Quantitative (Less Than 230) ng/mL Sodium (133-145) mmol/L Potassium (3.5-5.0) mmol/L Chloride (101-111) mmol/L Carbon Dioxide (22-32) mmol/L Anion Gap (2-11) mmol/L BUN (6-24) mg/dL Creatinine (0.51-0.95) mg/dL Est GFR ( Amer) (>60) Est GFR (Non-Af Amer) (>60) BUN/Creatinine Ratio (8-20) Glucose (70-100) mg/dL Calcium (8.6-10.3) mg/dL Total Bilirubin (0.2-1.0) mg/dL AST (13-39) U/L ALT (7-52) U/L Alkaline Phosphatase (34-104) U/L Troponin I 0.00 (<0.04) ng/mL C-Reactive Protein (< 5.00) mg/L B-Natriuretic Peptide 48 ( - 100) pg/mL Total Protein (6.4-8.9) g/dL Albumin (3.2-5.2) g/dL Globulin (2-4) g/dL Albumin/Globulin Ratio (1-3) Result Diagrams: 10/17/17 09:04 10/17/17 09:04 Lab Statement: Any lab studies that have been ordered have been reviewed, and results considered in the medical decision making process. - Radiology CXR Xray Interpretation: No Acute Changes - Findings most consistent with congestive heart failure. ED physician has reviewed this report. Radiology Interpretation Completed By: Radiologist Course/Dx - Course Course Of Treatment: Ms. Saunders presented with discomfort in her left chest with a concern that she was recollecting her pleural effusion. She was found to have a similar plain CXR to the one performed after her thoracentesis. I don't think there is an emergency here but she should F/U as she probably will need a repeat tap at some point. Assessment/Plan: The patient is diagnosed with chest pain. She is to follow up with her primary care provider as needed. Patient is agreeable with this plan. - Diagnoses Provider Diagnoses: Chest pain, Pleural effusion Discharge - Discharge Plan Condition: Stable Disposition: HOME Patient Education Materials: Chest Pain (ED) Referrals: Joshua Madden MD [Primary Care Provider] - Additional Instructions: Follow up with your primary care provider, Dr. Madden, as needed. Return to the Emergency Department if any new or worsening symptoms occur. The documentation as recorded by the Floyd arellano Natalie accurately reflects the service I personally performed and the decisions made by me, Bacilio Bobo MD.
== END 2017-10-17 11:51 | disposition home or self-care (01) ==
LOC: ED 08:25
DX: R07.9 Chest pain, unspecified (principal); J90 Pleural effusion, not elsewhere classified; Z87.891 Personal history of nicotine dependence; I10 Essential (primary) hypertension; C50.919 Malignant neoplasm of unspecified site of unspecified female breast
CPT/HCPCS: 36415; 71020; 80053; 83880; 84484; 85025; 85379; 86140; 99283

== ENCOUNTER 2018-01-15 08:57 | Day surgery (SDC) | payer MEDICARE, BC ==
[~2018-01-15 08:57] MED LIST: Buffered Lidocaine 0.9% SYRIN* 5 ML/SYR SYRINGE INTRADERM ONE; Midazolam* 1 MG/ML 2 ML VIAL (2 MG) ONE; Sodium Citrate/Citric Acid* 15 ML UDC PO ONE; fentaNYL* 50 MCG/ML 2 ML VIAL (100 MCG VIAL) ONE
[2018-01-15] MEDS ORDERED: Sodium Citrate/Citric Acid* 15 ML UDC ONE (09:10)
[2018-01-15] MEDS ORDERED: ceFAZolin 2 GM PREMIX (*) 2 GM/50 ML BAG IVPB ONE (09:11)
[2018-01-15] MEDS ORDERED: Buffered Lidocaine 0.9% SYRIN* 5 ML/SYR SYRINGE ONE (09:11)
[2018-01-15] MEDS ORDERED: Lidocaine 1% INJ* 10 MG/ML 30 ML SDV ONE (10:24)
[2018-01-15] MEDS ORDERED: Rocuronium* 10 MG/ML VIAL ONE (10:37)
[2018-01-15] MEDS ORDERED: PROCHLORPERAZINE INJ 5 MG/ML 2 ML VIAL IV PRN (11:18)
[2018-01-15] MEDS ORDERED: Ondansetron INJ* 2 MG/ML VIAL IV PRN (11:18)
[2018-01-15] MEDS ORDERED: oxyCODONE/Acetamin 5/325 MG* TAB PO PRN (11:18)
[2018-01-15] MEDS ORDERED: Naloxone* 0.4 MG/ML 1 ML VIAL IV PRN (11:18)
[2018-01-15] MEDS ORDERED: Acetaminophen TAB* 325 MG PO PRN (11:18)
[2018-01-15] MEDS ORDERED: Levalbuterol 1.25MG/0.5ML NEB INH PRN (11:18)
[2018-01-15] MEDS ORDERED: Scopolamine 1.5 mg* PATCH TRANSDERM PRN (11:18)
[2018-01-15] MEDS ORDERED: HYDROmorphone INJ* 1 MG/ML CARPUJECT SYRINGE IV PRN (11:18)
[2018-01-15] MEDS ORDERED: Propofol* 10 MG/ML 20 ML BTL IV PUSH ONE (11:24)
[2018-01-15] MEDS ORDERED: Succinylcholine* 20 MG/ML 10 ML VIAL ONE (11:24)
[2018-01-15] MEDS ORDERED: Levalbuterol 1.25MG/0.5ML NEB ONE (11:38)
[2018-01-15] MEDS ORDERED: Acetaminophen TAB* 325 MG ONE (11:57)
[2018-01-15] MEDS ORDERED: fentaNYL* 50 MCG/ML 2 ML VIAL (100 MCG VIAL) ONE (12:39)
[2018-01-15] MEDS: fentaNYL* 50 MCG/ML 2 ML VIAL (100 MCG VIAL) IV PRN ×2 (12:44→12:53)
[2018-01-15 13:21] VITALS: BP 162/92
--- NOTE | 2018-01-15 13:54 | RAD ---
INDICATION: Power port placement COMPARISONS: None relevant TECHNIQUE: Fluoroscopy was provided for a vascular access procedure. Total fluoroscopy time is: 9.6 seconds FINDINGS: Spot images demonstrates a vascular catheter overlying the right hemipelvis. The tip is not visible on the submitted images. IMPRESSION: FLUOROSCOPY WAS PROVIDED FOR A VASCULAR ACCESS PROCEDURE CPT II Codes: 6045F
--- NOTE | 2018-01-16 01:41 | OP ---
CC: Joshua Madden MD * DATE OF OPERATION: 01/15/18 - SDS DATE OF : 49 SURGEON: Robles Paetl MD [employer]MENT PRESERVATION INSPECTOR: None. ANESTHESIOLOGIST: Dr. Cisneros. ANESTHESIA: General anesthetic, local infiltration. PRE-OP DIAGNOSIS: Breast cancer. POST-OP DIAGNOSIS: Breast cancer. OPERATIVE PROCEDURE: Placement of right transfemoral PowerPort. DESCRIPTION OF PROCEDURE: The patient was supine on the operative table. After adequate general anesthetic, compression stockings, Wilma Hugger warmer, and intravenous antibiotics, the lower chest, abdomen, and right groin were prepped with antiseptic, draped in a sterile fashion. Ultrasound was utilized to identify the femoral artery and vein. Under direct vision, the femoral vein was cannulated with a needle and then guidewire passed under fluoroscopic guidance. Catheter was passed through the peel-away introducer and was tunneled up along the right anterior axillary line to the right anterolateral chest wall. A 3-cm incision was created in that location and the port was placed overlying the rib cage. It was sutured in place using 2-0 Prolene. The catheter was used. Full length was attached to the port and the pocket was closed with 3-0 Vicryl and 5-0 Monocryl. There was contour incision utilized in the mid portion to help her with the tunneling. The catheter was examined under fluoroscopy and was in good position looking like it was at approximately the junction of the iliac vein and the IVC. There was excellent blood return. It was flushed with saline solution and heparinized solution. Steri-Strips were placed on all incision. She tolerated the procedure well and was brought to Recovery in good condition. There were no complications. No drains. No pathological specimens. Sponge and instrument counts correct. Estimated blood loss less than 10 mL. [id number]/[facility] #: [id number] [facility]
[2018-01-18] MEDS ORDERED: Scopolamine PATCH Remove* 1 NOTE MISC PATCH OFF ONE (11:21)
== END 2018-01-15 13:33 | disposition home or self-care (01) ==
LOC: OR 08:57
PROVIDERS: ATTEND Surgery
DX: C50.911 Malignant neoplasm of unspecified site of right female breast (principal); J91.0 Malignant pleural effusion; I10 Essential (primary) hypertension; E05.90 Thyrotoxicosis, unspecified without thyrotoxic crisis or storm; Z85.3 Personal history of malignant neoplasm of breast; Z90.11 Acquired absence of right breast and nipple; Z92.3 Personal history of irradiation; Z88.8 Allergy status to other drugs, medicaments and biological substances; Z91.013 Allergy to seafood; Z87.891 Personal history of nicotine dependence
CPT/HCPCS: 76000; A9270-GY; C1788; J0330; J0690; J1642; J2250; J2704; J3010

== ENCOUNTER 2018-05-06 10:43 | Emergency (ER) | payer MEDICARE, BC ==
[2018-05-06] MEDS ORDERED: NS 0.9% 1000 ML* 1,000 ML IV ONE (11:12)
--- NOTE | 2018-05-06 11:56 | ED ---
Shortness of Breath - HPI Summary HPI Summary: This pt is a 73 y/o female presenting to [facility] c/o SOB worsening over the last few days. Pt has hx of breast CA with mets and is currently on chemotherapy. She states her "breathing has always been bad" but over the last few days SOB has worsened. Last week she notes her SOB worsened due to humidity. Last night pt reports she had to sleep on a recliner. She has used a nebulizer with some relief. Her SOB is aggravated with ambulation. This morning pt notes she had a panic attack because she was unable to take a deep breath and states her O2 sat was 85% on room air. She also reports non productive cough. Pt denies pain with deep breathing. Denies chest pain, fever, diarrhea, nausea. Pt notes vomiting last night from chemotherapy. Today denies nausea. Pt is currently on Lovenox. Her oncologist is Dr. Madden. - History of Current Complaint Chief Complaint: EDShortnessOfBreath Time Seen by Provider: 05/06/18 11:11 Hx Obtained From: Patient Onset/Duration: Lasting Days, Still Present Timing: Constant Current Severity: Moderate Dyspnea At: Rest Aggrevating Factors: Other - ambulation Alleviating Factors: Nothing Associated Signs & Symptoms: Cough (Nonproductive) - Allergy/Home Medications Allergies/Adverse Reactions: Allergies Allergy/AdvReac Type Severity Reaction Status Date / Time propoxyphene Allergy Intermediate Hives Verified 05/06/18 10:51 shellfish derived Allergy Intermediate Hives Verified 05/06/18 10:51 levofloxacin Allergy Unknown Verified 05/06/18 10:51 Reaction Details Home Medications: Home Medications Acetaminophen TAB* [Tylenol TAB*] 650 mg PO Q4H PRN 05/06/18 [History Confirmed 05/06/18] Benzonatate CAP* [Tessalon 100 MG CAP*] 100 mg PO TID PRN 05/06/18 [History Confirmed 05/06/18] Cholecalciferol TAB* [Vitamin D TAB*] 5,000 unit PO DAILY 05/06/18 [History Confirmed 05/06/18] Dexamethasone TAB* [Decadron TAB*] 4 mg PO DAILY 05/06/18 [History Confirmed 09/13] Enoxaparin Sodium [Lovenox] 120 mg SC DAILY 05/06/18 [History Confirmed 05/06/18 ] Eribulin* [Halaven*] 1 mg .SEE ORDER WEEKLY 05/06/18 [History Confirmed 05/06/18 ] Levothyroxine TAB* [Synthroid TAB*] 100 mcg PO DAILY 05/06/18 [History Confirmed 05/06/18] Loperamide CAP* [Imodium CAP*] 2 mg PO Q4H PRN 05/06/18 [History Confirmed 05/06] Metoprolol Succinate XL TAB* [Toprol XL TAB*] 25 mg PO DAILY 05/06/18 [History Confirmed 05/06/18] Ondansetron ODT TAB* [Zofran 4 MG Odt TAB*] 4 mg PO Q6H PRN 05/06/18 [History Confirmed 05/06/18] Potassium Chlor TAB* [Klor Con ER TAB*] 20 meq PO DAILY 05/06/18 [History Confirmed 05/06/18] Prochlorperazine TAB* [Compazine Tab*] 10 mg PO Q6H PRN 05/06/18 [History Confirmed 05/06/18] Zoledronic Acid* [Zometa] 4 mg .SEE ORDER WEEKLY 05/06/18 [History Confirmed 09/13] guaiFENesin LIQ* [Robitussin*] 10 ml PO Q4H PRN 05/06/18 [History Confirmed 09/13] PMH/Surg Hx/FS Hx/Imm Hx Endocrine/Hematology History: Reports: Hx Thyroid Disease Denies: Hx Diabetes Cardiovascular History: Reports: Hx Hypertension, Other Cardiovascular Problems/ Disorders - hx blood clots from neck down left arm from port Respiratory History: Reports: Hx Pleural Effusion, Hx Pneumonia - several times after chemo, Other Respiratory Problems/Disorders - BREAST CA. PLEURAL EFFUSION GI History: Reports: Hx Gastroesophageal Reflux Disease Denies: Other GI Disorders History: Denies: Hx Renal Disease Musculoskeletal History: Denies: Other Musculoskeletal History Sensory History: Reports: Hx Cataracts - left, Hx Contacts or Glasses - reading Denies: Hx Hearing Aid Opthamlomology History: Reports: Hx Cataracts - left, Hx Contacts or Glasses - reading Psychiatric History: Comment Only: Other Psychiatric Issues/Disorders - clostrophobic - Cancer History Cancer Type, Location and Year: Right Breast, 1998, Dr. Walsh Hx Chemotherapy: Yes Hx Radiation Therapy: Yes Hx Palliative Cancer Treatment: No - Surgical History Surgery Procedure, Year, and Place: rt mastectomy 1998; Hx Anesthesia Reactions: No Infectious Disease History: No Infectious Disease History: Denies: History Other Infectious Disease, Traveled Outside the [place] in Last 30 Days - Family History Known Family History: Negative: Cardiac Disease, Hypertension, Diabetes - Social History Alcohol Use: None Substance Use Type: Reports: None Smoking Status (MU): Former Smoker Amount Used/How Often: pack a week for 18 yrs Have You Smoked in the Last Year: No Review of Systems Negative: Fever, Chills Negative: Chest Pain Positive: Shortness Of Breath, Cough Negative: Vomiting, Diarrhea, Nausea All Other Systems Reviewed And Are Negative: Yes Physical Exam - Summary Physical Exam Summary: Appearance: Well appearing, no pain distress Skin: warm, dry, reflects adequate perfusion Head/face: normal Eyes: EOMI, MAGGIE ENT: Moist mucous membranes. Neck: supple, non-tender. No JVD. Chest: Mastectomy on the R, scarring on left chest. Respiratory: diminished in the left base, no wheezes, dry cough, otherwise clear. Pt is tachypneic. Cardiovascular: Tachycardic, pulses symmetrical Abdomen: non-tender, soft Bowel: present Musculoskeletal: normal, strength/ROM intact. No edema. Neuro: normal, sensory motor intact, A&Ox3 Triage Information Reviewed: Yes Vital Signs On Initial Exam: Initial Vitals Temp Pulse Resp BP Pulse Ox 97.2 F 110 20 160/86 91 05/06/18 10:47 05/06/18 10:47 05/06/18 10:47 05/06/18 10:47 05/06/18 10:47 Vital Signs Reviewed: Yes Diagnostics - Vital Signs Vital Signs Temp Pulse Resp BP Pulse Ox 05/06/18 10:47 97.2 F 110 20 160/86 91 - Laboratory Result Diagrams: 05/06/18 12:15 05/06/18 12:15 Lab Statement: Any lab studies that have been ordered have been reviewed, and results considered in the medical decision making process. - Radiology Chest XR Xray Interpretation: Positive (See Comments) - IMPRESSION: 1. Hyperinflation. 2. Moderate left and small right pleural effusion, with progression on the left compared to the previous examination. 3. Bibasilar atelectasis versus consolidation. Dr. Sanchez has reviewed this report. Radiology Interpretation Completed By: ED Physician - Left sided pleural effusion, Radiologist - EKG 11:25 Cardiac Rate: NL - at 98 bpm EKG Rhythm: Sinus Rhythm ST Segment: Normal EKG Interpretation: Q waves inferiorly. Possible lead reversal in leads II and III. Re-Evaluation - Re-Evaluation First Eval Re-Evaluation Time: 13:04 Change: Unchanged Comment: Pt was ambulated in the ED. Resting O2 sat is 95% on room air and with ambulation O2 sat decreased to 88% with heart rate of 122 bpm. Second Eval Re-Evaluation Time: 13:14 Change: Improved Comment: Pt was ambulated in the ED with 2L of oxygen and did better saturating between 94-95% with a heart rate of 110. Course/Dx - Course Course Of Treatment: Patient presents with history of metastatic breast CA and pleural effusion with dyspnea. She is on full dose Lovenox for therapeutic anticoagulation. She has no evidence for DVT. There is growing left-sided pleural effusion and small right-sided pleural effusion. She was ambulated here without oxygen and was quite dyspneic and hypoxic. I spoke with her oncologist who agreed that home oxygen was likely the best option. We walked her with oxygen and found that her symptoms were greatly abated. Home oxygen was arranged through case management and placed prior to discharge. She'll follow closely with her oncologist. - Diagnoses Differential Diagnosis/HQI/PQRI: Positive: Other - DVT/PE, pneumonia, pleural effusion Provider Diagnoses: Pleural effusion, Hypoxia, Metastatic breast cancer - Physician Notifications Discussed Care of Patient With: Aditya Best Time Discussed With Above Provider: 13:07 Instructed by Provider To: Other - I discussed pt care with Dr. Best, oncologist, who recommends to walk pt on oxygen and see how she does. Discharge - Sign-Out/Discharge Documenting (check all that apply): Patient Departure - Discharge - Discharge Plan Condition: Improved Disposition: HOME Patient Education Materials: Pleural Effusion (ED), Hypoxia (ED) Referrals: Joshua Madden MD [Primary Care Provider] - Additional Instructions: Please follow up with Dr. Madden tomorrow. RETURN TO THE ED FOR ANY WORSENING OR NEW SYMPTOMS, SUCH FEVER, CHEST PAIN, SOB. - Billing Disposition and Condition Condition: IMPROVED Disposition: Home
[2018-05-06 12:26] LABS: ABS Basophils 0 10^3/ul (0-0.2); ABS Eosinophils 0 10^3/ul (0-0.6); ABS Lymphocytes 0.4 10^3/ul (1.0-4.8); ABS Monocytes 0.2 10^3/ul (0-0.8); ABS Neutrophils 1.7 10^3/ul (1.5-7.7); ABS Nucleated RBC 0 10^3/ul; Eosinophil % 0 % (0-6); Hematocrit 35 % (35-47); Hemoglobin 11.9 g/dl (12.0-16.0); Lymphocyte % 17.5 % (25-47); Mean Corpuscular HGB Conc 34 g/dl (31-36); Mean Corpuscular Hemoglobin 30 pg (27-31); Mean Corpuscular Volume 88 fL (80-97); Mean Platelet Volume 8.4 um3 (7.4-10.4); Nucleated Red Blood Cells % 0.1; Platelet Count 215 10^3/ul (150-450); Red Cell Distribution Width 16 % (10.5-15); White Blood Count 2.3 10^3/ul (3.5-10.8)
[2018-05-06 12:46] LABS: EGFR Non-African American 89.9 (>60)
[2018-05-06 12:50] LABS: INR 0.97 (0.77-1.02)
--- NOTE | 2018-05-06 13:00 | RAD ---
HISTORY: SOB, on chemo (on lovenox) COMPARISONS: January 08, 2018, PET/CT dated March 26, 2018 VIEWS: 4: Frontal dual-energy and lateral views of the chest. FINDINGS: CARDIOMEDIASTINAL SILHOUETTE: The cardiomediastinal silhouette is normal. RODOLFO: The rodolfo are normal. PLEURA: There is moderate left and small right pleural effusion. There has been progression on the left. The previous examination. LUNG PARENCHYMA: There is hyperinflation. There is patchy alveolar opacification of the lung bases bilaterally. There is persistent masslike opacification of the right lung apex corresponding to an area of bronchiectasis and atelectasis on the previous CT examination ABDOMEN: The upper abdomen is clear. There is no subphrenic gas. BONES AND SOFT TISSUES: Degenerative changes are noted. Surgical clips are noted along the chest. OTHER: None. IMPRESSION: 1. HYPERINFLATION. 2. MODERATE LEFT AND SMALL RIGHT PLEURAL EFFUSION, WITH PROGRESSION ON THE LEFT COMPARED TO THE PREVIOUS EXAMINATION. 3. BIBASILAR ATELECTASIS VERSUS CONSOLIDATION.
[2018-05-06 15:33] VITALS: BP 159/82
== END 2018-05-06 15:25 | disposition home or self-care (01) ==
LOC: ED 10:43
DX: J90 Pleural effusion, not elsewhere classified (principal); R09.02 Hypoxemia; C79.9 Secondary malignant neoplasm of unspecified site; E07.9 Disorder of thyroid, unspecified; I10 Essential (primary) hypertension; Z85.3 Personal history of malignant neoplasm of breast; Z79.899 Other long term (current) drug therapy; Z86.718 Personal history of other venous thrombosis and embolism; Z87.01 Personal history of pneumonia (recurrent); Z90.11 Acquired absence of right breast and nipple; Z87.891 Personal history of nicotine dependence; Z79.01 Long term (current) use of anticoagulants; Z88.8 Allergy status to other drugs, medicaments and biological substances; Z88.3 Allergy status to other anti-infective agents
CPT/HCPCS: 36415; 71046; 80053; 83605; 83880; 84484; 85025; 85610; 85730; 87040; 93005; 96360; 99283; J1642

== ENCOUNTER → 2018-05-11 09:31 | Day surgery (SDC) | payer MEDICARE, BC ==
[~2018-05-11 09:31] MED LIST changes: -Buffered Lidocaine 0.9% SYRIN* 5 ML/SYR SYRINGE INTRADERM ONE; +Lidocaine 1% INJ* 10 MG/ML 30 ML SDV ONE; -Midazolam* 1 MG/ML 2 ML VIAL (2 MG) ONE; -Sodium Citrate/Citric Acid* 15 ML UDC PO ONE; -fentaNYL* 50 MCG/ML 2 ML VIAL (100 MCG VIAL) ONE
--- NOTE | 2018-05-11 12:46 | RAD ---
Indication: Post LEFT thoracentesis. Comparison: May 08, 2018 CT and May 06, 2018 chest radiograph. Technique: Upright AP 1220 hours Report: Negative for pneumothorax. Interval decrease in LEFT pleural effusion. Current exam demonstrates small bilateral dependent pleural effusions. LEFT greater than RIGHT lower lung zone atelectasis. 1.2 cm nodule at the medial RIGHT upper lung zone corresponds with extensive calcification at the RIGHT first costochondral junction on CT. Magnitude of LEFT lower lung zone atelectasis precludes accurate assessment of heart size. Unremarkable central pulmonary vasculature and mediastinal contours. IMPRESSION: #. Negative for pneumothorax post thoracentesis. #. Interval decrease in volume of LEFT pleural fluid.
--- NOTE | 2018-05-12 04:49 | OP ---
CC: Joshua Madden MD * DATE OF OPERATION: 05/11/18 - [facility] DATE OF : 49 SURGEON: Kaveh Coleman MD MARITIME PILOT: None. ANESTHESIA: Local anesthesia. PRE-OP DIAGNOSES: 1. Metastatic breast cancer. 2. Left pleural effusion. POST-OP DIAGNOSES: 1. Metastatic breast cancer. 2. Left pleural effusion. OPERATIVE PROCEDURE: Left thoracentesis. INDICATION: Ms. Saunders is a 73-year-old female whose case I discussed with my partner last week. CT chest was reviewed. The patient had notable shortness of breath, had undergone thoracentesis in the past, most recently on the left with fair to good results. She had a recurrence of pleural effusion right side as well as left with left greater than right. I outlined the details of the procedure of a left thoracentesis to her. I went over the risks, benefits and alternatives. We spoke of watchful waiting. We also spoke of possibility of PleurX catheter to help with this placement at a later date. The patient's shortness of breath suggested that she wanted some intervention and she signed consent willingly. I spoke of the possible complications which included but not limited to hemothorax, pneumothorax, need for additional procedures, inability to evacuate enough fluid for any symptom relief. The patient was then marked. Time out was performed as she signed consent. FINDINGS: 1 L of straw colored fluid that was removed from the left chest. SPECIMEN: No specimen was sent. DESCRIPTION OF PROCEDURE: The left chest was approached at landmark at the 9th intercostal space. Incision was made after injection of lidocaine. An 8- Guyanese catheter was then inserted over a needle in to the left chest and approximately a liter of straw colored fluid was evacuated. The patient had some significant discomfort as well as coughing. The tube output started producing more blood-like material. This did clot within the tubing. I was able to free the clot and then get back to thinner fluid. This never flowed very well and the patient was uncomfortable and, so we stopped the intervention after just over 1 L of fluid output. Catheter was removed and a bandage placed. A chest x-ray was performed postoperatively and this was reviewed. The patient is to follow up with her oncologist. I spoke to her oncologist and discussed the possibility of placement of a PleurX catheter in the future. [id number]/[facility] #: [id number] CARLITOS
== END | disposition home or self-care (01) ==
LOC: OR 09:31
PROVIDERS: ATTEND Surgery
DX: J91.0 Malignant pleural effusion (principal); C50.919 Malignant neoplasm of unspecified site of unspecified female breast
CPT/HCPCS: 32554; 71045

== ENCOUNTER 2018-05-13 06:45 | Inpatient (IN) | payer MEDICARE, BC ==
[2018-05-13] MEDS ORDERED: Lidocaine 2.5%/Prilocain 2.5%* 5 GM TUBE ONE (07:24)
[2018-05-13 07:39] LABS: ABS Basophils 0 10^3/ul (0-0.2); ABS Eosinophils 0 10^3/ul (0-0.6); ABS Lymphocytes 0.4 10^3/ul (1.0-4.8); ABS Monocytes 0.9 10^3/ul (0-0.8); ABS Neutrophils 3.5 10^3/ul (1.5-7.7); ABS Nucleated RBC 0 10^3/ul; Eosinophil % 0.1 % (0-6); Hematocrit 38 % (35-47); Hemoglobin 12.8 g/dl (12.0-16.0); Lymphocyte % 8.5 % (25-47); Mean Corpuscular HGB Conc 34 g/dl (31-36); Mean Corpuscular Hemoglobin 30 pg (27-31); Mean Corpuscular Volume 89 fL (80-97); Mean Platelet Volume 8.5 um3 (7.4-10.4); Nucleated Red Blood Cells % 0; Platelet Count 247 10^3/ul (150-450); Red Blood Count 4.31 10^6/ul (4.00-5.40); Red Cell Distribution Width 17 % (10.5-15); White Blood Count 4.8 10^3/ul (3.5-10.8)
[2018-05-13 07:56] LABS: EGFR Non-African American 82.5 (>60)
--- NOTE | 2018-05-13 07:56 | ED ---
Shortness of Breath - HPI Summary HPI Summary: This is Dimple arellano, documenting for attending Maria G Orr MD. This patient is a 73 year old F presenting to [facility], from [facility] area, accompanied by her with a chief complaint of SOB, described as being suffocated for the past week. She started 3L of NC at home O2 this week. SOB worsened by laying supine. She reports a similar symptoms previously relieved by thoracentesis. Patient has been taking Lovenox for a year due to a history of blood clots. She is currently being treated for breast CA with mets to the bone liver and lungs, with chemotherapy. Dr. Madden is oncologist. Denies chest pain, fever, chills, abdominal pain, vomiting, and nausea. - History of Current Complaint Chief Complaint: EDShortnessOfBreath Time Seen by Provider: 05/13/18 06:55 Hx Obtained From: Patient Onset/Duration: Lasting Weeks Timing: Constant Dyspnea At: Rest Aggrevating Factors: Recumbent Position Alleviating Factors: Other - previously thoracentesis Associated Signs & Symptoms: Negative Related History: Similar Episode - Allergy/Home Medications Allergies/Adverse Reactions: Allergies Allergy/AdvReac Type Severity Reaction Status Date / Time propoxyphene Allergy Intermediate Hives Verified 05/11/18 09:50 shellfish derived Allergy Intermediate Hives Verified 05/11/18 09:50 levofloxacin Allergy Unknown Verified 05/11/18 09:50 Reaction Details PMH/Surg Hx/FS Hx/Imm Hx Endocrine/Hematology History: Reports: Hx Thyroid Disease Denies: Hx Diabetes Cardiovascular History: Reports: Hx Hypertension, Other Cardiovascular Problems/ Disorders - hx blood clots from neck down left arm from port Denies: Hx Congestive Heart Failure Respiratory History: Reports: Hx Pleural Effusion, Hx Pneumonia - several times after chemo, Other Respiratory Problems/Disorders - BREAST CA. PLEURAL EFFUSION GI History: Reports: Hx Gastroesophageal Reflux Disease Denies: Other GI Disorders History: Denies: Hx Renal Disease Musculoskeletal History: Denies: Other Musculoskeletal History Sensory History: Reports: Hx Cataracts - left, Hx Contacts or Glasses - reading Denies: Hx Hearing Aid Opthamlomology History: Reports: Hx Cataracts - left, Hx Contacts or Glasses - reading Psychiatric History: Comment Only: Other Psychiatric Issues/Disorders - clostrophobic - Cancer History Cancer Type, Location and Year: Right Breast, 1998, Dr. Nico Barger Chemotherapy: Yes Hx Radiation Therapy: Yes Hx Palliative Cancer Treatment: No - Surgical History Surgery Procedure, Year, and Place: rt mastectomy 1998; Hx Anesthesia Reactions: No Infectious Disease History: No Infectious Disease History: Denies: History Other Infectious Disease, Traveled Outside the [place] in Last 30 Days - Family History Known Family History: Negative: Cardiac Disease, Hypertension, Diabetes - Social History Occupation: Retired Alcohol Use: None Substance Use Type: Reports: None Smoking Status (MU): Former Smoker Amount Used/How Often: pack a week for 18 yrs Have You Smoked in the Last Year: No Review of Systems Constitutional: Negative Positive: Shortness Of Breath Gastrointestinal: Negative All Other Systems Reviewed And Are Negative: Yes Physical Exam - Summary Physical Exam Summary: GENERAL: Patient is a well developed and nourished female who is lying comfortable in the stretcher. Patient is not in any acute respiratory distress. HEAD AND FACE: Normocephalic EYES: PERRLA, EOMI x 2. EARS: Hearing grossly intact. MOUTH: Oropharynx within normal limits. NECK: Supple, trachea is midline, no adenopathy, no JVD, no carotid bruit. CHEST: Symmetric, no tenderness at palpation LUNGS: Clear to auscultation bilaterally. No wheezing or crackles. Decreased breath sounds at the bases CVS: Regular rate and rhythm, S1 and S2 present, no murmurs or gallops appreciated. ABDOMEN: Soft, non-tender. Bowel sounds are normal. No abdominal abnormal pulsations. EXTREMITIES: Full ROM in all major joints, no edema, no cyanosis or clubbing. NEURO: Alert and oriented x 3. No acute neurological deficits. Speech is normal and follows commands. SKIN: Dry and warm Triage Information Reviewed: Yes Vital Signs On Initial Exam: Initial Vitals Temp Pulse Resp BP Pulse Ox 98.3 F 100 18 146/98 98 05/13/18 06:49 05/13/18 06:49 05/13/18 06:49 05/13/18 06:49 05/13/18 06:49 Vital Signs Reviewed: Yes Diagnostics - Vital Signs Vital Signs Temp Pulse Resp BP Pulse Ox 05/13/18 06:49 98.3 F 100 18 146/98 98 - Laboratory Result Diagrams: 05/14/18 06:37 05/14/18 06:38 Lab Statement: Any lab studies that have been ordered have been reviewed, and results considered in the medical decision making process. - Radiology CXR Radiology Interpretation Completed By: Radiologist - 1. LEFT GREATER THAN OR RIGHT PLEURAL EFFUSIONS. 2. PULMONARY VASCULAR CONGESTION. 3. HYPERINFLATION ED Physician has reviewed this report. - EKG 0714 Cardiac Rate: NL - 97 BPM EKG Rhythm: Sinus Rhythm EKG Interpretation: left atrial enlargement, Q wave in inferior and anterior leads, similar to EKG Comparison: No Significant Change Course/Dx - Course Course Of Treatment: 73 year old F presenting with a chief complaint of SOB, for the past week. She started 3L of NC at home O2 this week. SOB worsened by laying supine. She reports a similar symptoms previously relieved by thoracentesis. Patient has been taking Lovenox for a year due to a history of blood clots. She is currently being treated for breast CA with mets to the bone liver and lungs, with chemotherapy. Dr. Madden is oncologist. Denies chest pain, fever, chills, abdominal pain, vomiting, and nausea.Workup remarkable for pleural effusion bilaterally worse on the left than right, revealed in CXR. EKG reveals left atrial enlargement and Q wave in inferior and anterior leads, similar to previous EKGs. Pt will be admitted to oncology team. Pt accepted by Dr. Best at 09:51 - Diagnoses Provider Diagnoses: Pleural effusion - Physician Notifications Discussed Care of Patient With: Aditya Best - oncologist Time Discussed With Above Provider: 09:51 Instructed by Provider To: Admit As Inpatient Discharge - Sign-Out/Discharge Documenting (check all that apply): Patient Departure - Discharge Plan Condition: Stable Disposition: ADMITTED TO [facility] - Billing Disposition and Condition Condition: STABLE Disposition: Admitted to [facility]
--- NOTE | 2018-05-13 08:32 | RAD ---
HISTORY: SOB COMPARISONS: May 11, 2018 VIEWS: 4: Frontal dual-energy and lateral views of the chest. FINDINGS: CARDIOMEDIASTINAL SILHOUETTE: The cardiomediastinal silhouette is normal. RODOLFO: The rodolfo are normal. PLEURA: There is moderate left pleural effusion and a small right pleural effusion. LUNG PARENCHYMA: There is hyperinflation with flattening of the diaphragm and expansion of the AP diameter of the chest. There is prominence of the central pulmonary vasculature. ABDOMEN: The upper abdomen is clear. There is no subphrenic gas. BONES AND SOFT TISSUES: No bone or soft tissue abnormalities are noted. OTHER: None. IMPRESSION: 1. LEFT GREATER THAN OR RIGHT PLEURAL EFFUSIONS. 2. PULMONARY VASCULAR CONGESTION. 3. HYPERINFLATION
[2018-05-13] MEDS ORDERED: LORazepam INJ* 2 MG/ML 1 ML VIAL IV PUSH PRN (11:02)
[2018-05-13] MEDS ORDERED: Morphine VIAL* 4 MG/ML VIAL (1 ml vial) IV PRN (11:02)
[2018-05-13] MEDS ORDERED: Acetaminophen TAB* 325 MG PO PRN (11:02)
[2018-05-13] MEDS ORDERED: Iohexol 300* (CONTRAST) 10 ML SDV IV ONE (12:38)
[2018-05-13] MEDS ORDERED: Loperamide CAP* 2 MG PO PRN (12:40)
[2018-05-13] MEDS ORDERED: Ondansetron ODT TAB* 4 MG PO PRN (12:40)
--- NOTE | 2018-05-13 15:21 | RAD ---
CLINICAL HISTORY: Metastatic breast cancer COMPARISON: January 15, 2018 PET/CT, CT of the abdomen and pelvis dated August 16, 2013 TECHNIQUE: Multiple contiguous axial CT scans were obtained of the abdomen and pelvis after the administration of intravenous contrast. Coronal and sagittal multiplanar reformations are submitted for review. Oral contrast was administered. Delayed images were obtained through the abdomen. FINDINGS: LUNG BASES: There is a related changes to the right lower lung. There is a large left pleural effusion with a small right pleural effusion. There is compressive atelectasis of the left lower lobe. The patient is status post right mastectomy. LIVER: The liver is diffusely low in attenuation compared to the spleen. There are low-attenuation hepatic lesions of the right lobe of liver. Accounting for differences in technique, these are similar to the previous PET/CT. BILE DUCTS: There is no intrahepatic or extrahepatic biliary dilatation. GALLBLADDER: The gallbladder is normal, without pericholecystic inflammatory change. PANCREAS: There is a cystic lesion of the body of the pancreas best seen on axial image 38 coronal image 44. This measures 1.3 x 1 cm transversely. There is no associated FDG avidity on the previous PET/CT examination. This has developed compared to the August 16, 2013 examination. SPLEEN: Normal in size and appearance. UPPER GI TRACT: Evaluation of the gastrointestinal tract is limited by incomplete gastric distention. The upper GI tract is unremarkable. SMALL BOWEL AND MESENTERY: The small bowel is normal in contour, course, and caliber. There is no obstruction or dilatation. COLON: There are multiple diverticula of the sigmoid colon. There is no pericolonic inflammatory change. ADRENALS: Normal bilaterally. KIDNEYS: The kidneys are normal in shape, size, contour, and axis. There is no hydronephrosis or nephrolithiasis. BLADDER: The bladder is incompletely distended but is grossly normal. PELVIC ORGANS: The uterus and adnexa are grossly normal for technique. AORTA: There is calcific atherosclerotic disease of the abdominal aorta and its branches, without aneurysmal dilatation IVC: Unremarkable. A right femoral venous port is noted with the tip at the level of the external iliac vein. LYMPH NODES: There is no lymphadenopathy by size criteria. ABDOMINAL WALL: There is no evidence for abdominal wall hernia. BONES AND SOFT TISSUES: There are multiple sclerotic lesions of the axial skeleton. These are similar to the previous examination. OTHER: None IMPRESSION: 1. AGAIN NOTED ARE HEPATIC AND OSSEOUS LESIONS CONSISTENT WITH METASTATIC DISEASE. ATTENDING FOR DIFFERENCES IN TECHNIQUE, THESE ARE STABLE FROM THE MOST RECENT PET/CT EXAMINATION. 2. THERE IS A CYSTIC LESION OF THE BODY OF THE PANCREAS. THIS IS NOT FDG AVID ON THE RECENT PET/CT. THE APPEARANCE IS SUGGESTIVE OF A CYSTIC PANCREATIC NEOPLASM, INCLUDING SIDE BRANCH INTRADUCTAL PAPILLARY MUCIN PRODUCING NEOPLASM 3. LEFT GREATER THAN RIGHT PLEURAL EFFUSIONS WITH LEFT BASILAR COMPRESSIVE ATELECTASIS. 4. FATTY INFILTRATION OF THE LIVER. 5. ATHEROSCLEROSIS. 6. DIVERTICULOSIS.
[2018-05-13 15:36] LABS: INR 1.02 (0.77-1.02)
[2018-05-13] MEDS ORDERED: Morphine INJ* 10 MG/ML 1 ML CARPUJECT IV PRN (20:37)
--- NOTE | 2018-05-13 20:40 | PN ---
Progress Note - Progress Note Date of Service: 05/13/18 SOAP: Follow up to admission. Discussed progressive disease on CT scans and limited options for therapy. Additional chemotherapy likely to further degrade QOL. Will focus on maximizing breathing and comfort. - Pleurex catheter - Palliative care consult and discharge to hospice - Increase Morphine to 5 mg q2 hr prn - Currently DNR []
[2018-05-14 02:34] LABS: Urine Appearance Clear; Urine Blood 1+ (Negative); Urine Color Yellow; Urine Ketones 1+ (Negative); Urine Protein Negative (Negative); Urine Red Blood Cell Trace(0-2/hpf) (Absent); Urine Specific Gravity 1.047 (1.010-1.030); Urine Urobilinogen Negative (Negative); Urine White Blood Cell Trace(0-5/hpf) (Absent)
[2018-05-14] MEDS: Levothyroxine TAB* 100 MCG TAB PO SCH (05:31)
[2018-05-14 07:16] LABS: ABS Basophils 0.1 10^3/ul (0-0.2); ABS Eosinophils 0 10^3/ul (0-0.6); ABS Lymphocytes 0.6 10^3/ul (1.0-4.8); ABS Monocytes 0.8 10^3/ul (0-0.8); ABS Nucleated RBC 0 10^3/ul; Eosinophil % 0 % (0-6); Hematocrit 38 % (35-47); Hemoglobin 12.8 g/dl (12.0-16.0); Lymphocyte % 13.4 % (25-47); Mean Corpuscular HGB Conc 34 g/dl (31-36); Mean Corpuscular Hemoglobin 30 pg (27-31); Mean Corpuscular Volume 88 fL (80-97); Mean Platelet Volume 8.9 um3 (7.4-10.4); Nucleated Red Blood Cells % 0.1; Platelet Count 267 10^3/ul (150-450); Red Blood Count 4.29 10^6/ul (4.00-5.40); Red Cell Distribution Width 17 % (10.5-15); White Blood Count 4.5 10^3/ul (3.5-10.8)
[2018-05-14 07:38] LABS: EGFR Non-African American 89.9 (>60)
[2018-05-14] MEDS ORDERED: Alteplase (CATHFLO)* 2 MG VIAL IV ONE (09:00)
[2018-05-14] MEDS: Metoprolol Succinate XL TAB* 25 MG PO SCH (09:49)
--- NOTE | 2018-05-14 10:09 | PN ---
Progress Note - Progress Note Date of Service: 05/14/18 SOAP: Subjective: tearful and anxious. feels anxious to get pleurex cath in and wants to move forward so that she can go home tomorrow on hospice. tearful appropriately about dying. feels that she has a very good support system. Objective: Vital Signs Temp Pulse Resp BP Pulse Ox 97.5 F 94 22 141/66 98 05/14/18 07:45 05/14/18 07:45 05/14/18 08:00 05/14/18 07:45 05/14/18 07:45 sitting up in chair on O2, tachypneic op dry dec bs bilaterally soft nt +abd wall port 1+ LE edema A+O x 3, nonfocal neurological exam Acetaminophen (Tylenol Tab*) 650 mg PO Q4H PRN PRN Reason: pain/headache/fever Heparin Sodium (Porcine) (Heparin Flush Port (Ivad)) 5 ml FLUSH DAILY [facility]; Protocol Levothyroxine Sodium (Synthroid Tab*) 100 mcg PO DAILY@0600 [facility] Last Admin: 05/14/18 05:31 Dose: 100 mcg Loperamide HCl (Imodium Cap*) 2 mg PO Q4H PRN PRN Reason: LOOSE STOOLS Lorazepam (Ativan Inj*) 0.5 mg IV PUSH Q4H PRN PRN Reason: ANXIETY Last Admin: 05/13/18 13:26 Dose: 0.5 mg Metoprolol Succinate (Toprol Xl Tab*) 25 mg PO DAILY [facility] Last Admin: 05/14/18 09:49 Dose: 25 mg Morphine Sulfate (Morphine Inj (Syringe)*) 5 mg IV Q2H PRN PRN Reason: Pain/sob Ondansetron HCl (Zofran Odt Tab*) 4 mg PO Q6H PRN PRN Reason: NAUSEA Assessment: 73 yo F w metastatic breast cancer with recurrent pleural effusion, now with plan for palliative pleurex catheter and then discharge to home hospice. Plan: -hospice referral placed today urgently -pleurex later today -anticipate dc home tomorrow
[2018-05-14] MEDS ORDERED: Buffered Lidocaine 0.9% SYRIN* 5 ML/SYR SYRINGE INTRADERM ONE (13:37)
[2018-05-14] MEDS ORDERED: Midazolam* 1 MG/ML 2 ML VIAL (2 MG) ONE ×2 (15:24→15:55)
[2018-05-14] MEDS ORDERED: Lidocaine 2% PF * 5 ML VIAL ONE (15:54)
[2018-05-14] MEDS ORDERED: Propofol* 10 MG/ML 20 ML BTL IV PUSH ONE (15:54)
--- NOTE | 2018-05-14 17:02 | RAD ---
INDICATION: Breast carcinoma COMPARISON: Chest x-ray May 13, 2018 TECHNIQUE: An AP portable view obtained at 1639 hours is submitted. FINDINGS: Bones/Soft Tissues: There are no acute bony findings. There are postoperative changes in right chest Cardiomediastinal: The cardiac silhouette is unchanged. There is uncoiling of the aorta. There is mild interstitial prominence. There may be a mild component of interstitial congestion Lungs: There is mild bibasilar infiltrate or atelectasis . There is no pneumothorax. Pleura: There are pleural effusions left greater than right. Left-sided effusion is smaller. Other: None IMPRESSION: SPECT INTERSTITIAL CONGESTION WITH BASILAR COMPRESSION ATELECTASIS and bilateral pleural effusions. The left-sided effusion is smaller
--- NOTE | 2018-05-15 03:20 | OP ---
CC: Dr. Madden * DATE OF OPERATION: 05/14/18 - ROOM #407 DATE OF : 49 SURGEON: Robles Patel MD INDUSTRIAL SAFETY AND HEALTH SPECIALIST: None. ANESTHESIOLOGIST: To. ANESTHESIA: LMAC anesthesia. PRE-OP DIAGNOSIS: Recurrent left pleural effusion. POST-OP DIAGNOSIS: Recurrent left pleural effusion. OPERATIVE PROCEDURE: Placement of left PleurX catheter. DESCRIPTION OF PROCEDURE: The patient was supine on the operative table. She was inclined towards her right side. The left chest was prepped with antiseptic, draped in a sterile fashion. Time-out confirmed the laterality. Local anesthetic was administered in the posterior axillary line and a skinny needle was used to identify the pleural space. Pleural fluid was readily forthcoming. Then, the large needle was utilized and the guide wire was passed without difficulty. The catheter was tunneled from an anterior aspect and put in through the Peel-Away introducer and the entrance site was closed with 3-0 Vicryl, which was also used at the tube site and the chest was drained of a total of 800 mL of clear fluid. She tolerated this well. Sterile bandage was placed and she was brought to Recovery in good condition. [id number]/[facility] #: [id number] MTDD
[2018-05-15] MEDS: Levothyroxine TAB* 100 MCG TAB PO SCH (05:50)
[2018-05-15 08:08] VITALS: BP 138/67
[2018-05-15] MEDS: Metoprolol Succinate XL TAB* 25 MG PO SCH (09:19)
--- NOTE | 2018-05-15 10:44 | PN ---
Progress Note - Progress Note Date of Service: 05/15/18 SOAP: Subjective: []Better today. Tolerated pleurex, no pain. Breathing fine sitting still, any movement and SOB. Not in pain. Acetaminophen (Tylenol Tab*) 650 mg PO Q4H PRN PRN Reason: pain/headache/fever Last Admin: 05/14/18 19:27 Dose: 650 mg Heparin Sodium (Porcine) (Heparin Flush Port (Ivad)) 5 ml FLUSH DAILY [facility]; Protocol Last Admin: 05/15/18 09:21 Dose: 5 ml Lactated Ringer's (Lactated Ringers 1000 Ml Bag*) 1,000 mls @ 125 mls/hr IV PER RATE [facility] Levothyroxine Sodium (Synthroid Tab*) 100 mcg PO DAILY@0600 [facility] Last Admin: 05/15/18 05:50 Dose: 100 mcg Loperamide HCl (Imodium Cap*) 2 mg PO Q4H PRN PRN Reason: LOOSE STOOLS Lorazepam (Ativan Inj*) 0.5 mg IV PUSH Q4H PRN PRN Reason: ANXIETY Last Admin: 05/13/18 13:26 Dose: 0.5 mg Metoprolol Succinate (Toprol Xl Tab*) 25 mg PO DAILY [facility] Last Admin: 05/15/18 09:19 Dose: 25 mg Morphine Sulfate (Morphine Inj (Syringe)*) 5 mg IV Q2H PRN PRN Reason: Pain/sob Ondansetron HCl (Zofran Odt Tab*) 4 mg PO Q6H PRN PRN Reason: NAUSEA Objective: [] Vital Signs Temp Pulse Resp BP Pulse Ox 97.5 F 90 18 138/67 100 05/15/18 07:14 05/15/18 07:14 05/15/18 08:00 05/15/18 07:14 05/15/18 07:14 HEENT: Pale, pimples pin point CTA RRR s1S2, I did not hear the murmur +BS NT Tr edema Assessment: []73 year old with end stage breast cancer and progressive SOB. Had Pleurex yesterday and will be discharged today with home hospice likely starting next week. She is not in pain, breathing better but still a challenge after catheter placed. Plan: []1. Will discharge home today 2. Plan teaching Pleurex drain before discharge. Our office is working on having bulbs sent. 3. Discussed hospice again, call me over weekend for any difficulty. 4. Morphine 10-20 mg q 4 for SOB time spent on discharge 40 min today
== END 2018-05-15 13:45 | disposition hospice, home (50) | DRG 598 ==
LOC: ED 06:45 → MED 11:02
PROVIDERS: ADMIT Internal Medicine Hematology & Oncology; ATTEND Internal Medicine Hematology & Oncology
PROC: 0WHB33Z Insertion of Infusion Device into Left Pleural Cavity, Percutaneous Approach (ICD-10-PCS; principal; 2018-05-14 16:15)
DX: C50.919 Malignant neoplasm of unspecified site of unspecified female breast (principal); J91.0 Malignant pleural effusion; E05.90 Thyrotoxicosis, unspecified without thyrotoxic crisis or storm; J45.909 Unspecified asthma, uncomplicated; I10 Essential (primary) hypertension; Z66 Do not resuscitate; Z17.0 Estrogen receptor positive status [ER+]; Z88.5 Allergy status to narcotic agent; Z91.013 Allergy to seafood; Z79.1 Long term (current) use of non-steroidal anti-inflammatories (NSAID); Z79.899 Other long term (current) drug therapy; Z87.891 Personal history of nicotine dependence; Z80.42 Family history of malignant neoplasm of prostate; Z80.8 Family history of malignant neoplasm of other organs or systems
CPT/HCPCS: 32554; 36415; 71045; 71046; 74177; 80053; 81003; 81015; 83605; 83880; 83921; 84484; 85025; 85610; 85730; 86300; 87040; 87077; 87086; 87186; 93005; 99223; 99284; A9270-GY; J1642; J2060; J2250; J2704; J2997; Q9967